=== PATIENT | female | born 2005 | race Caucasian/White ===

== ENCOUNTER → 2025-02-10 10:54 | Outpatient (BNVA) | payer SELFPAY | PROVIDERS: PCP Pediatrics | DX: Z02.89 Encounter for other administrative examinations (principal) ==

== ENCOUNTER 2025-05-15 09:23 | Outpatient (AMB) | payer BC, SELFPAY ==
--- NOTE | 2025-05-15 09:29 | MHC.PC.OV ---
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 Allergies Seasonal Allergies Allergy (Verified 05/15/25 09:35) Swollen Pet dander Allergy (Uncoded 05/15/25 09:35) Welts Tobacco use date assessed: 05/15/25 Dental Screening Dental Screen Date: 05/15/25 Did you have a dental visit in the last 12 months?: Yes Did you have a dental problem in the last 6 months where you did not have access to dental care?: No Was dental information given to patient?: Patient has dentist HPI HPI Comments History of Present Illness Details This is a 19-year-old female with a past medical history of IBS and environmental allergies presenting to establish care. She transferred from Pediatrics. Reports her last physical exam was in July 2024. 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 Shallot Packer-Dr. Mata. She has 1 partner. Declined screening for STIs. Anxiety and depression-Dr. Ibarra prescribes Zoloft 75 mg daily. She tapered from 200 mg daily. She is doing well. She endorses seasonal allergies and allergies do a animals. She specifically mentions cats, dogs and goes. A few times exposure has caused hives, itching, itchy watery eyes, throat itching and swelling around her eyes and face. She takes Benadryl as needed. She uses a nose spray daily. She sees gastroenterology for IBS. She may have gluten sensitivity. Has not had colonoscopy or endoscopy. ROS: Constitutional: No fevers, chills, chronic fatigue or night sweats. Eyes: No vision changes, blurry vision, double vision ENT: Denies hearing loss. See HPI. Respiratory: No shortness of breath, cough or sputum production. Denies wheezing. Denies asthma. Psychiatric: No SI/HI. Physical exam: Constitutional: Alert, in no distress. Eyes: Pupils are equal, round and reactive to light. Extraocular muscles intact. Ear, Nose and Throat: Canals clear. TMs normal. Normal nasal mucosa. Nasal turbinates 1+. No nasal discharge. No oral lesions. Neck: Supple, Full range of motion. No lymphadenopathy. No palpable thyroid masses. Respiratory: Clear to auscultation. Cardiovascular: S1 S2 regular. No murmurs. s. Musculoskeletal: No gross deformities. Normal range of motion. Extremities: Warm and well perfused. No clubbing, cyanosis or edema. [facility] Medical History (Updated 05/16/25 @ 11:06 by REID Palafox) Depression with anxiety Screening for cardiovascular condition Environmental and seasonal allergies Eczema Depression Anxiety IBS (irritable bowel syndrome) Surgical History (Updated 05/15/25 @ 09:46 by Rae Valdivia MA) History of appendectomy Family History (Updated 05/15/25 @ 09:42 by Rae Valdivia MA) Paternal Grandmother Hypertension Hyperlipemia FHx: mental illness Bipolar 1 disorder Father Hyperlipemia Substance abuse Alcoholism Mother Skin cancer FHx: mental illness Depression Maternal Grandmother FHx: mental illness Depression Anxiety Maternal Grandfather FHx: mental illness Social History (Updated 05/15/25 @ 09:42 by Rae Valdivia MA) Housing: House Alcohol intake: current Patient Tobacco Use Status: Never used Tobacco e-Cigarette/Vaping Use: Never Used Second Hand Smoke Exposure: No service: No Current occupational status: employed and student 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 1. Little interest or pleasure in doing things: not at all 2. Feeling down, depressed, or hopeless: not at all 3. Trouble falling or staying asleep, or sleeping too much: several days 4. Feeling tired or having little energy: several days 5. Poor appetite or overeating: not at all 6. Feeling bad about yourself - or that you are a failure or have let yourself or your family down: not at all 7. Trouble concentrating on things, such as reading the newspaper or watching television: not at all 8. Moving or speaking so slowly that other people could have noticed. Or the opposite - being so fidgety or restless that you have been moving around a lot more than usual: not at all 9. Thoughts that you would be better off or of hurting yourself in some way: not at all Total score: 2 Depression Screening Interpretation: Negative Depression Screening Done: Yes 68659 - PHQ-9 Billing: Yes Source: Developed by Drs. Tk Sánchez, Brisa Smith, Obi Reis and colleagues, with an educational vel from [employer]. Thrive Questionnaire Date Thrive assessed: 05/15/25 I am a: Patient What is your living situation today?: I have a steady place to live Within the past 12 months, did the food you bought not last and you didn't have the money to get more?: Never true Within the past 12 months, did you worry whether your food would run out before you got money to buy more?: Never true Do you have trouble paying for medicines?: No Do you have trouble getting transportation to medical appointments?: No Do you have trouble paying your heating and electricity bill?: No Do you have trouble taking care of your child, family member or friend?: No Do you have trouble with day-to-day activities such as bathing, preparing meals, shopping, managing finances, etc.?: No Are you currently unemployed and looking for a job?: No Are you interested in more education?: No Please select the resources that you would like help with: None Currently or been in a relationship where the following occur: No concerns reported THRIVE Score: 0 AUDIT C Alcohol Use Questionnaire (AUDIT-C) 1. How often do you have a drink containing alcohol?: 2-4 times a month 2. How many drinks containing alcohol do you have on a typical day when you are drinking?: 1 or 2 3. How often do you have six or more drinks on one occasion?: Never Total Score: 2 ROXANA-7 AMB Questionnaire ROXANA-7 Date ROXANA - 7 assessed: 05/15/25 Feeling nervous, anxious, or on edge: 1 = Several days Not being able to stop or control worryin = Several days Worrying too much about different things: 1 = Several days Trouble relaxin = Several days Being so restless that it is hard to sit still: 1 = Several days Becoming easily annoyed or irritable: 1 = Several days Feeling afraid as if something awful might happen: 1 = Several days Total ROXANA-7 score (0-4 normal; 5-9 mild; 10-14 moderate; 15-21 severe): 7 Source: Developed by Drs. Tk Sánchez, Brisa Smith, Obi Reis and colleagues, with an educational vel from [employer]. Physical exam (Primary Care) Vital Signs: Last Vital Signs Temp 97.8 F 05/15/25 09:42 Pulse 67 05/15/25 09:42 Resp 13 05/15/25 09:42 BP 112/70 05/15/25 09:42 Pulse Ox 98 05/15/25 09:42 Oxygen Delivery Method Room Air 05/15/25 09:42 BMI result Body Mass Index 23.1 Tobacco/Smoking Status: Tobacco use Status Tobacco use date assessed 05/15/25 05/15/25 09:45 Patient Tobacco Use Status Never used Tobacco 05/15/25 09:45 e-Cigarette/Vaping Use Never Used 05/15/25 09:45 PHQ-9: PHQ-9 Score PHQ-9: Total score 2 05/15/25 10:00 Depression Screening Interpretation: Negative Thrive Assessment: Date of Thrive Assessment Date Thrive assessed 05/15/25 05/15/25 09:31 Currently or been in a relationship where the following occur: No concerns reported Coding Level of Care Code New Pt Level 4 (04461) Complex EM visit Add On G2211 Diagnoses Environmental and seasonal allergies J30.89 Depression with anxiety F41.8 IBS (irritable bowel syndrome) K58.9 Additional Codes PHQ-9 - 35427 - PHQ-9 Billing: Yes ([id number]) Assessment & Plan Assessment & Plan (1) Environmental and seasonal allergies: Code(s): J30.89 - Other allergic rhinitis Category: Medical Plan: She is interested in immunotherapy. Referred to Allergy and immunology. Recommended Zyrtec 10 mg before exposure to animals. She can take this after exposure for allergy symptoms if she forgets. She can use Zyrtec 10 mg daily as needed for seasonal allergies. She is on a nasal spray. Given report of angioedema with exposure to goats, cats, dogs I prescribed an EpiPen as a precaution. Reviewed indicated use and administration. Advised to call 911 if she requires this medication. (2) Depression with anxiety: Code(s): F41.8 - Other specified anxiety disorders Category: Medical Plan: Followed by Psychiatry. Continue sertraline. (3) IBS (irritable bowel syndrome): Code(s): K58.9 - Irritable bowel syndrome, unspecified Category: Medical Plan: Followed by Gastroenterology. Plan She will schedule a physical exam and have fasting labs completed prior to this. Orders: Orders Lipid Panel 05/15/25 E78.5 - Hyperlipidemia, unspecified, J30.89 - Other allergic rhinitis, Z13.6 - Encounter for screening for cardiovascular disorders TSH reflex Free T4 05/15/25 J30.89 - Other allergic rhinitis, Z13.6 - Encounter for screening for cardiovascular disorders Complete Blood Count Auto Diff 05/15/25 J30.89 - Other allergic rhinitis, Z13.6 - Encounter for screening for cardiovascular disorders Comprehensive Met. Panel 05/15/25. - Other allergic rhinitis, Z13.6 - Encounter for screening for cardiovascular disorders Referrals Allergy & Immunology Referral . - Other allergic rhinitis Medications: New epinephrine (EpiPen) for 2 doses 0.3 mg (0.3 mL) IM Q10M PRN 1 ea 0RF anaphylaxis
[2025-05-15 09:42] VITALS: BP 112/70; PULSE 67; RESP 13; TEMP 36.6; O2SAT 98; BMI 23.1
--- OUTSIDE RECORDS SUMMARY | 2025-05-15 09:54 | XMS_ITS ---
Author Name [facility] Organization Unknown Encounters Encounter Type Encounter Reason Primary Diagnosis Location Date Ambulatory [facility] 06/24/2021 Care Team Organization Name Specialty Phone Email Start Date End Da te [facility] JAMARI GIBBS Primary Care 06/24/2021 05/16/2024
--- OUTSIDE RECORDS SUMMARY | 2025-05-15 09:55 | XMS_ITS | Patient Health Record ---
Author Organization [facility] Address [address] [place] [address] Care Team Providers Care Lead Instructor/Flight Attendant Name Role Phone Merna Mata Unavailable [phone] Allergies No Known Allergies Results Component Value Reference Range Notes Urinalysis Reviewed date:03/28/2025 12:10:38 PM Interpretation: Performing Lab: Notes/Report: PH 5.0 PROTEIN NEG GLUCOSE NEG BLOOD NEG [id number]-Xqo IGP, CtNg, Cultur e Under 30 Reviewed date:03/30/2025 04:43:23 PM Interpretation: Performing Lab:[facility] [place], [address], [address], [place], Phone - [phone], Director - [facility] Notes/Report: Clinical Information:VAG/CERV [id number] LMP / Prev Treat...[id number] Dates / Results....NONE No. of containers..01 ThinPrep Vial DIAGNOSIS: NEGATIVE FOR IN TRAEPITHELIAL LESION OR MALIGNANCY. Specimen adequacy: Satisfactory for evaluation. Endocervical and/or squamous metaplastic cells (endocervical component) are present. Clinician provided ICD10: Z01.419 Z72.51 Z11.3 Performed by: Shin hale, Customer Associate (ASCP) . . Note: The Pap smear is a screening test designed to aid in the detection of premalignant and malignant conditions of the uterine cervix. It is not a diagnostic procedure and should not be used as the sole means of detecting cervical cancer. Both false-positive and false-negative reports do occur. . Test Methodology: This liquid based ThinPrep(R) pap test was screened with the use of an image guided system. . The HPV DNA reflex criteria were not met with this specimen result therefore, no HPV testing was performed. . Chlamydia, Nuc. Acid Amp Negative Negative Gonococcus, Nuc. Acid Amp Negative Negative PDF Report Reviewed date:03/30/2025 04:42:20 PM Interpretation: Performing Lab:[facility], [address], [address], [place], Phone - [phone], Director - [facility] Notes/Report: Clinical Information:VAG/CERV [id number] LMP / Prev Treat...[id number] Dates / Results....NONE No. of containers..01 ThinPrep Vial Test, Urine Reviewed date:04/18/2025 01:08:47 PM Interpretation: Performing Lab: Notes/Report: Test, Urine NEGATIVE Reason For Referral No Information Medications Medication SIG (Take, Route, Fr equency, Duration) Notes Start Date End Date Status Sertraline HCl Activ e miSOPROStol 200 MCG 2 TABLETS Orally NIG HT BEFORE PROCEDURE; Duration: 1 days 03/28/2025 Acti ve Ativan 0.5 MG 1 tablet as needed O rally NIGHT BEFORE AND DAY OF PROCEDURE, THEN BIC, PRN; Duration: 1 days 03/28/2025 Active Social History Tobacco Use: Social History Observation Description Date Details (start date - stop date) Never Smoker NA - NA Sexual History Question Answer Notes Had sex in the past 12 months (vaginal, oral, or anal)? Yes with Men only Use protection? Yes How often? All of the time AUDIT-C (Standard) Question Answer Notes Did you have a drink containing alcohol in the p ast year? No Points 0 Interpretation Negative Tobacco Control (Standard) Question Answer Notes Tobacco use: Nonsmoker Vital Signs Temperature 98.2 degrees Fahrenheit 03/28/2025 Blood pressure diastolic 76 mm Hg 03/28/2025 Height 63 in 03/28/2025 Blood pressure systolic 118 mm Hg 03/28/2025 Weight 129 lbs 03/28/2025 BMI 22.85 kg/m2 03/28/2025 Encounters Encounter Location Date Provider Diagnosis Total [address] [facility] [address] [place] [address] 03/28/2025 Merna Mata Encounter for gynecological examination (general) (routine) without abnormal findings Z01.419 ; High risk heterosexual behavior Z72.51 ; Encounter for screening for infections with a predominantly sexual mode of transmission Z11.3 ; Encounter for routine checking of intrauterine contraceptive device Z30.431 and Other specified counseling Z71.89 [address] [place] [address] 04/18/2025 Merna Mata Encounter for remova l and reinsertion of intrauterine contraceptive device Z30.[address] [place] [address] 03/28/2025 Merna Mata Assessments Encounter Date Diagnosis (ICD Code) Assessment Notes Treatment Notes Treatment Clinical Notes Section Notes 03/28/2025 Encounter for gynecological examination (general) (routine) without abnormal findings (ICD-10 - Z01.419) PAP TEST WAS OBTAINED. 04/18/2025 Encounter for removal and reinsertion of intrauterine contraceptive device (ICD-10 - Z30.433) DISCUSSED BENEFITS AND RISKS OF IUD USE. PAT HAS NO CONTRAINDICATIONS TO IUD USE AND ACCEPTS RISKS OF INSERTION AND IUD USE. QUESITONS WERE ALL ANSWERED. 03/28/2025 High risk heterosexual behavior (ICD-10 - Z72.51) 03/28/2025 Encounter for screening for infections with a predominantly sexual mode of transmission (ICD-10 - Z11.3) GC & CHLAMYDIA TESTS WITH PAP SMEAR. 03/28/2025 Encounter for routine checking of intrauterine contraceptive device (ICD-10 - Z30.431) CRISTINA IUD NEEDS TO BE REPLACED THIS APR. RECOMMENDED WE SHIFT TO KYLEENA IUD. SUSPECT SHE HAS LONG PERIODS AND EPISODES OF BTB CRISTINA MAY NOT BE STRONG ENOUGH FOR HER. PAT AGREED. WILL REPLACE IUD WITH KYLEENA IUD IN APR 2025. RX FOR ATIVAN WAS GIVEN. PAT BECOMES EXTREMELY ANXIOUS PRIOR TO AND DURING PROCEDURES. 03/28/2025 Other specified counseling (ICD-10 - Z71.89) SAFE SEX AND CAREFUL PARTNER SELECTION WERE DISCUSSED. Plan Of Treatment Next Appt Details Provider Name:Merna shah, 05/19/2025 10:10:00 AM, [facility] [address], [place], [address], Provider Name:Merna shah, 04/04/2026 08:20:00 AM, [address], [address], [place], [address], Insurance Providers Payer Name Payer Address Payer Phone Subscriber Number Group Number Insured Name Patient Relationship to Insured Coverage Start Date Coverage End Date [employer] [place] [address] [place] [address] [phone] [id number] ISA WHITLOCK Self - patient is the insured Medical (General) History Medical History History ICD Code appendex 2016 Surgical History Surgery Date(Month/Year) APPENDECTOMUY 2016 Hospitalization History Reason Date(Month/Year) CAR ACCEDENT 02/08/2024
== END 2025-05-15 10:15 | disposition home or self-care (01) ==
LOC: HO.HMCFM 09:24
PROVIDERS: PCP Physician Assistant Medical; Visit Provider Physician Assistant Medical
DX: J30.89 Other allergic rhinitis (principal); F41.8 Other specified anxiety disorders; K58.9 Irritable bowel syndrome, unspecified

== ENCOUNTER → 2025-05-15 09:23 | Outpatient (BNVA) | payer BC, SELFPAY | PROVIDERS: PCP Physician Assistant Medical; Visit Provider Physician Assistant Medical | DX: J30.89 Other allergic rhinitis (principal); F41.8 Other specified anxiety disorders; K58.9 Irritable bowel syndrome, unspecified; Z79.899 Other long term (current) drug therapy; Z13.31 Encounter for screening for depression; Z13.39 Encounter for screening examination for other mental health and behavioral disorders | CPT/HCPCS: 96127 ==

== ENCOUNTER 2025-07-07 13:35 | Outpatient (AMB) | payer BC, SELFPAY ==
--- NOTE | 2025-07-07 13:37 | MHC.OFFWIV ---
Intake Vital Signs 07/07/25 13:42 Height 5 ft 3 in Weight 133 lb 4 oz BMI 23.6 BP 118/70 Blood Pressure Location Lt brachial Position Sitting Respiration 12 Pulse 69 Pulse Source Pulse Oximeter Temp 97.1 F Temp Source Oral Pulse Oximetry (%) 97 Oxygen Delivery Method Room Air Intake Visit Reasons: Anxiety Intake Note: Patient c/o anxiety and panic attacks after in the family. Patient Tobacco Use Status: Never used Tobacco Mash Filter Cloth Changer Required: No Allergies Seasonal Allergies Allergy (Verified 07/07/25 13:38) Swollen Pet dander Allergy (Uncoded 07/07/25 13:38) Welts Do you need a note to return to daycare/school/sports/work: No [facility] Medical History (Updated 05/16/25 @ 11:06 by REID Palafox) Depression with anxiety Screening for cardiovascular condition Environmental and seasonal allergies Eczema Depression Anxiety IBS (irritable bowel syndrome) Surgical History (Updated 05/15/25 @ 09:46 by Rae Valdivia MA) History of appendectomy Family History (Updated 05/15/25 @ 09:42 by Rae Valdivia MA) Paternal Grandmother Hypertension Hyperlipemia FHx: mental illness Bipolar 1 disorder Father Hyperlipemia Substance abuse Alcoholism Mother Skin cancer FHx: mental illness Depression Maternal Grandmother FHx: mental illness Depression Anxiety Maternal Grandfather FHx: mental illness Social History (Updated 05/15/25 @ 09:42 by Rae Valdivia MA) Housing: House Alcohol intake: current Patient Tobacco Use Status: Never used Tobacco e-Cigarette/Vaping Use: Never Used Second Hand Smoke Exposure: No service: No Current occupational status: employed and student 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
[2025-07-07 13:42] VITALS: BP 118/70; PULSE 69; RESP 12; TEMP 36.2; O2SAT 97; BMI 23.6
--- NOTE | 2025-07-07 14:04 | MHC.PC.OV ---
Vital Signs 07/07/25 13:42 Height 5 ft 3 in Weight 133 lb 4 oz BMI 23.6 BP 118/70 Blood Pressure Location Lt brachial Position Sitting Respiration 12 Pulse 69 Pulse Source Pulse Oximeter Temp 97.1 F Temp Source Oral Pulse Oximetry (%) 97 Oxygen Delivery Method Room Air Intake Visit Reasons: Anxiety Allergies Seasonal Allergies Allergy (Verified 07/07/25 14:07) Swollen Pet dander Allergy (Uncoded 07/07/25 13:38) Welts Medication List - Last Reconciled 07/07/25 by Freya Briceno, SUGARCANE RESEARCH TECHNICIAN- cetirizine (Zyrtec) 10 mg PO DAILY PRN epinephrine (EpiPen) 0.3 mg (0.3 mL) IM Q10M PRN levonorgestrel (Kyleena) intrauterine sertraline (Zoloft) 50 mg PO DAILY sertraline (Zoloft) 25 mg PO DAILY Tobacco use date assessed: 05/15/25 Dental Screening Dental Screen Date: 05/15/25 HPI HPI Comments History of Present Illness Details 19-year-old female with a past medical history of IBS, MDD, ROXANA environmental allergies 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 Here for acute anxiety and panic. Grandfather passed way increased stress Services are next week 4 panic attacks in the last 2 weeks active w/ counselor weekly Anxiety and depression-Dr. Ibarra prescribes Zoloft 75 mg daily who does not RX prn meds uses exercise to cope Sx of panic: chest tightness, hard to breath, hyperventiliation, palps, crying. Denies SI/HI. FLu shot 06/2025 Exam Awake alert NAD RRR LS CTAB Mood and affect appropriate During today?s visit, we discussed the recent increase in panic attacks and the management options available. I provided information on hydroxyzine and metoprolol as potential PRN choices for acute anxiety episodes. I clarified the sedative effects and indications of each medication, including dosing strategies. We also reviewed the safety of using hydroxyzine with her current sertraline prescription. The patient chose hydroxyzine due to its flexibility in dosing and ability to adjust to situational needs. We discussed taking an initial trial dose at home to assess her reaction. We also talked about practicing self-awareness and measuring the effects of the medication. Future follow-ups with her primary psychiatrist and psychologist were encouraged, and the potential use of a patient portal for communication and addressing ongoing concerns was highlighted. I also recommended she attend her upcoming appointments and provided anticipatory guidance to monitor her response to the medication. Patient was given time to ask questions. All questions were answered to their satisfaction. A&P 1. Generalized Anxiety Disorder w/ Panic - Maintain sertraline therapy. - Initiate hydroxyzine PRN for acute anxiety 12.5-50mg TID PRN - Continue therapy and exercise. - Monitor response, ensure proactive use before stressors. - No drug interaction concerns with current regimen. - RTO as scheduled with PCP, sooner PRN Patient Instructions: - Continue taking sertraline 75 mg daily as prescribed for anxiety. - Take hydroxyzine up to three times per day as needed to manage panic attacks. Start with a half tablet and gradually increase only if needed. - Exercise regularly and keep attending therapy sessions. - Take hydroxyzine at home first to see how it affects you. - Use hydroxyzine 30 minutes before high-stress situations such as services. Patient was informed and verbally consented to the use of an ambient scribe for clinic note documentation during this visit. Total time spent caring for the patient today was 30 minutes. This includes time spent before the visit reviewing the chart, time spent during the visit, and time spent after the visit on documentation, reviewing laboratory results, diagnostic imaging, medications, performing a medically necessary evaluation, counseling on diagnoses, care coordination, ordering appropriate tests, ordering appropriate medications, review of tests performed by other providers, reporting test results with the patient, communication with other healthcare providers. [facility] Medical History (Updated 05/16/25 @ 11:06 by REID Palafox) Anxiety Depression Depression with anxiety Eczema Environmental and seasonal allergies IBS (irritable bowel syndrome) Screening for cardiovascular condition Surgical History (Updated 05/15/25 @ 09:46 by Rae Valdivia MA) History of appendectomy Family History (Updated 05/15/25 @ 09:42 by Rae Valdivia MA) Paternal Grandmother Hypertension Hyperlipemia FHx: mental illness Bipolar 1 disorder Father Hyperlipemia Substance abuse Alcoholism Mother Skin cancer FHx: mental illness Depression Maternal Grandmother FHx: mental illness Depression Anxiety Maternal Grandfather FHx: mental illness Social History (Updated 05/15/25 @ 09:42 by JORDAN Frausto Housing: House Alcohol intake: current Patient Tobacco Use Status: Never used Tobacco e-Cigarette/Vaping Use: Never Used Second Hand Smoke Exposure: No service: No Current occupational status: employed and student Current occupation: Home H[employer] - [employer] Current occupational exposures/hazards: Yes Cognitive needs: No Hearing needs: No Vision needs: No Questionnaire Thrive Questionnaire Date Thrive assessed: 05/15/25 I am a: Patient What is your living situation today?: I have a steady place to live Within the past 12 months, did the food you bought not last and you didn't have the money to get more?: Never true Within the past 12 months, did you worry whether your food would run out before you got money to buy more?: Never true Do you have trouble paying for medicines?: No Do you have trouble getting transportation to medical appointments?: No Do you have trouble paying your heating and electricity bill?: No Do you have trouble taking care of your child, family member or friend?: No Do you have trouble with day-to-day activities such as bathing, preparing meals, shopping, managing finances, etc.?: No Are you currently unemployed and looking for a job?: No Are you interested in more education?: No Please select the resources that you would like help with: None Currently or been in a relationship where the following occur: No concerns reported THRIVE Score: 0 ROXANA-7 AMB Questionnaire ROXANA-7 Date ROXANA - 7 assessed: 05/15/25 Source: Developed by Drs. Tk Sánchez, Brisa Smith, Obi Reis and colleagues, with an educational vel from [employer]. Physical exam (Primary Care) Vital Signs: Last Vital Signs Temp 97.1 F 07/07/25 13:42 Pulse 69 07/07/25 13:42 Resp 12 07/07/25 13:42 BP 118/70 07/07/25 13:42 Pulse Ox 97 07/07/25 13:42 Oxygen Delivery Method Room Air 07/07/25 13:42 BMI result Body Mass Index 23.6 Tobacco/Smoking Status: Tobacco use Status Tobacco use date assessed 05/15/25 05/15/25 09:45 Patient Tobacco Use Status Never used Tobacco 05/15/25 09:45 e-Cigarette/Vaping Use Never Used 05/15/25 09:45 Thrive Assessment: Date of Thrive Assessment Date Thrive assessed 05/15/25 05/15/25 09:31 Currently or been in a relationship where the following occur: No concerns reported Coding Level of Care Code Est Pt Level 4 (70759) Complex EM visit Add On G2211 Diagnoses Depression with anxiety F41.8 Assessment & Plan Assessment & Plan (1) Depression with anxiety: Code(s): F41.8 - Other specified anxiety disorders Category: Medical Plan . Medications: New hydroxyzine HCl 25 mg PO TID PRN 90 tabs 0RF itching Patient Instructions: Trial Hydrozyxine 12.5-50mg three times per day as needed for acute anxiety; titrate to effect.
== END 2025-07-07 14:16 | disposition home or self-care (01) ==
LOC: HO.HMCFM 13:36
PROVIDERS: PCP Physician Assistant Medical; Visit Provider Nurse Practitioner Family
DX: F41.8 Other specified anxiety disorders (principal)

== ENCOUNTER 2025-08-11 07:42 | Outpatient (REF) | payer BC, SELFPAY ==
--- OUTSIDE RECORDS SUMMARY | 2025-05-19 06:10 | XMS_ITS ---
Author Organization [facility] [employer] [facility] Address [address] [place] [address] Care Team Providers Care Bushler Name Role Phone Merna Mata Unavailable [phone] REASON FOR VISIT ULTRA-CK IUD Encounters Encounter Location Date Provider Diagnosis [facility] [employer] [address] [address] 05/19/2025 Merna Mata Plan Of Treatment Next Appt Details Provider Name:Merna gilmoremitchell, 04/04/2026 08:20:00 AM, [address] [place] [address], [facility] [address], [place], [address], Progress Notes * ISA WHITLOCKDOB: (19 yo F)Acc No.[id number]:05/19/2025 PROGRESS NOTES Patient: Marvin ISA FIGUEREDO Appointment Provider: Mitchell Mata M.D. :2005 A ge:19 Y S ex:Female Date:05/19/2025 Address:[address] [place] [address] Subjective: * Chief Complaints: * 1 . ULTRA-CK IUD. * Medical History: Objective: * Vitals: Assessment: Plan: * Treatment: * Images: Billing Information: * Visit Code: * Procedure Codes: * Electronic signature of Winston Mata MD on 08/11/2025 at 07:44 AM EST Sign off status: Pending * Appointment Provider: Mitchell Mata M.D. Date: 0 05/19/2025 Generated for Mavis pisano/Nellie/Alex on: 1 10/11/2024 07:44 AM EST
--- OUTSIDE RECORDS SUMMARY | 2025-08-11 07:45 | XMS_ITS | Clinical Summary ---
Author Organization [facility] Address [address] [place], [place] [id number] Care Team Providers Care Lead Laying And Gluing Machine Operator Name Role Phone Estephania Sims MD Primary Care Provider Source Comments Please note that some or all of the patient's information could have additional privacy protections. State laws allow health care providers to render certain types of treatment to minors without parental consent. Please do not assume that this information can be shared solely by obtaining just the consent of the patient's parent/guardian. Please determine if all or part of the patient's care was rendered without parent/guardian involvement. And, if so, obtain the minor's consent prior to disclosure.[facility]'s Allergies Active Allergy Reactions Criticality Noted Date Comments Other (Environmental) 02/05/2018 Seasonal 02/05/2018 Medications loratadine (CLARITIN) 10 mg tablet Take by mouth daily Active fluticasone (FLONASE) 50 mcg/actuation nasal spray 2 sprays by Nasal route daily Active adapalene (DIFFERIN) 0.1 % gel Apply topically Active desogestreL-eth inyl estradioL (APRI) 0.15-0.03 mg per tablet Take by mouth 0 Active APRI 0.15-0.03 mg per tablet Take 1 tablet by mouth daily 1 Active Active Problems No known active problems Family History Medical History Relation Name Comments Thyroid disease 2nd cousin No Known Problems Father No Known Problems Mother Celiac disease Paternal Cousin Hypertension Paternal Grandmother Relation Name Status Comments 2nd cousin Father Mother Paternal Cousin Paternal Grandmother Social History Tobacco Use Types Packs/Day Years Used Date Smoking Tobacco: Never Smokeless Tobacco: Never Other Needs Answer Date Recorded Anything else about your child you'd like help w ith? Not on file 06/12/2023 Share good news about positive changes: Not on f ile 06/12/2023 Comments No Sex and Gender Information Value Date Recorded Sex Assigned at Not on file Legal Sex Female 8:42 AM EDT Gender Identity Not on file Sexual Orientation Not on file Last Filed Vital Signs Vital Sign Reading Time Taken Comments Blood Pressure 129/79 08/16/2021 12:17 PM EST Pulse 69 08/16/2021 12:17 PM EST Temperature - - Respiratory Rate - - Oxygen Saturation - - Inhaled Oxygen Concentration - - Weight 60 kg (132 lb 4.4 oz) 08/16/2021 12:17 PM EST Height 160.5 cm (5' 3.19 ) 08/16/2021 12:[address] Body Mass Index 23.29 08/16/2021 12:17 PM EST Plan of Treatment Health Maintenance Due Date Last Done Comments DTaP/TDAP/TD VACCINES (1 - Tdap) 2010 ADOLESCENT HIV SCREENING 2016 COVID-19 Vaccine ( - 2023-2 5 season) 2025 INFLUENZA (#1) 2025 NIRSEVIMAB VACCINES UNDER 8 MONTHS Aged Out No longer eligible based on patient's age to complete this topic Insurance [facility] [place] [id number] [employer] Care Teams Lead Laying And Gluing Machine Operator Relationship Specialty Start Date End Date Estephania Sims MD PCP - General 02/05/18
--- OUTSIDE RECORDS SUMMARY | 2025-08-11 07:45 | XMS_ITS | Encounter Summary ---
Author Organization [facility] Address [address] [place] [address] Care Team Providers Care Analysis Engineer Name Role Phone Estephania Sims MD Primary Care Provider Reason for Visit * Reason Comments Medication Refill Encounter Details Date Type Department Care Team (Late st Contact Info) Description 07/16/2021 Refill [facility], [address] [address] Aubrie Rodriguez MD [address] [place] [id number] Lower abdominal pain Social History Tobacco Use Types Packs/Day Years Used Date Smoking Tobacco: Never Smokeless Tobacco: Never Comments No Sex and Gender Information Value Date Recorded Sex Assigned at Not on file Legal Sex Female 8:42 AM EDT Gender Identity Not on file Sexual Orientation Not on file documented as of this encounter Miscellaneous Notes * Telephone Encounter - Ibeth Curtis RN - 07/16/2021 11:13 AM EDT Last visit: 06/24/21 Next visit: 08/16/21 Weight: 57.6 kg Allergies: reviewed Current dose: Bentyl 10 mg po three times a day for abdominal pain documented in this encounter Plan of Treatment Not on file documented as of this encounter Visit Diagnoses Diagnosis Lower abdominal pain Abdominal pain, other specified site documented in this encounter Care Teams Analysis Engineer Relationship Specialty Start Date End Date Estephania Sims MD PCP - General 02/05/18 documented as of this encounter
--- OUTSIDE RECORDS SUMMARY | 2025-08-11 07:45 | XMS_ITS | Data Portability ---
Author Organization [facility], [address] Address [address] [place] [address] Assessment No assessment recorded. Plan of Treatment Reminders Order Date Submit Date Provider Last Modified By Organization Details Last Modified Time Details Appointments None recorded. Lab None recorded. Referral None recorded. Procedures None recorded. Surgeries None recorded. Imaging None recorded. Medication Orders Diflucan 150 mg tablet 2023 024 [facility][id number], [address] [place], [address], 17:36:43 Patient TargetsNo targets recorded. Patient Instructions Encounter Date Encounter Id Patient Instructions Last Modified By Organization Details Last Modified Time 04/14/2024 [id number] Based on your history and complaint, you are being diagnosed with vaginal yeast infection. The Most Common Symptoms associated with this condition is: 1. Itching or irritation of the vulva and around the vaginal opening 2. Irritation during urination 3. External Redness and Swelling 4. White Vaginal Discharge The fungus that causes yeast infections (named Lisa) lives in the gastrointestinal tract and sometimes the vagina. Normally, Lisa causes no symptoms. However, when there are changes in the environment of the gastrointestinal tract and vagina (which can be caused by medicines, injury, or stress to the immune system), Lisa can overgrow and cause the symptoms described above. Risk Factors Include: 1. Antibiotics 2. Oral Contraceptive Pills 3. Decreased Immune System 4. Diabetes 5. Sexual [place] 6. As with initial yeast infections, it is important to correctly diagnose recurrent yeast infections. A woman who has frequent signs and symptoms of vulvar or vaginal irritation or itching could have a different issue (eg, other vaginal infections, allergic reaction or sensitivity, eczema). I would suggest that you follow up if your symptoms do not improve with the treatment or if you develop any of the following symptoms: 1. Colored Vaginal Discharge 2. Strong Vaginal Odor 3. Bleeding from vagina or blood in the urine 4. Painful urination 5. Suprapubic pain 6. Fever 7. Find out a sexual partner currently has a sexually transmitted disease. Thank you for using [facility], please feel free to contact our office if you have any questions or concerns. [email or web address] Not available 04/14/2024 17:36:40 Reason for Referral None Reported. Procedures Surgical History Date Name Laterality Status Provider Name and Address Organization Details Recorded Time extraction of wisdom tooth completed ADIS MATHEWS - [facility] 04/14/2024 17:21:46 Imaging Results None recorded. Procedure Notes None recorded. Medical Equipment None Reported. Allergies No known drug allergies Medications Name Sig Start Date Stop Date Status Note LastModified by Organization Details LastModified Time sertraline 100 mg tablet TAKE 2 TABLET (200 MG) BY MOUTH AT BEDTIME active Not Available Not Available No t Available Diflucan 150 mg tablet Take 1 tab now, then 1 tab in 3 days if symptoms persis 2023 active Not Available Not Available Not Avai lable triamcinolo ne acetonide 0.1 % topical cream FAMILY TO MIX 80 GRAMS OF TRIAMCINO LONE WITH 1 POUND OF CERAVE & USE DAILY 04/14 completed Not Available Not Available Not Available bupropion HCl SR 100 mg tablet,12 hr sustained-r elease TAKE 1 TABLET BY MOUTH DAILY IN THE MORNING 04/14 completed Not Available Not Available Not Available amoxicillin 250 mg/5 mL oral suspension TAKE 10MLS BY MOUTH EVERY 8 HOURS UNTIL GONE 04/14 completed Not Available Not Available Not Available methylpredn isolone 4 mg tablets in a dose pack TAKE 6 TABLETS ON DAY 1 DIRECTED ON PACKAGE AND DECREASE BY 1 TAB EACH DAY FOR A TOTAL OF 6 DAYS 04/14 completed Not Available Not Available Not Available ondansetron 4 mg disintegrat ing tablet DISSOLVE 1 TABLET ON TONGUE EVERY 8 HOURS NEEDED FOR NAUSEA 04/14 completed Not Available Not Available Not Available mometasone 0.1 % topical cream APPLY TO AFFECTED AREA TOPICALLY EVERY DAY 04/14 completed Not Available Not Available Not Available oxycodone 5 mg tablet TAKE 1 TABLET BY MOUTH EVERY 4 HOURS NEEDED FOR PAIN 04/14 completed Not Available Not Available Not Available methylpheni date LA 10 mg biphasic 50-50 capsule,ext ended release TAKE 1 CAPSULE BY MOUTH EVERY DAY IN THE MORNING 04/14 completed Not Available Not Available Not Available Vitals Date Recorded Body height Body mass index (BMI) Body mass index (BMI) [Percentile] Per age and sex Body weight Oxygen saturation Oxygen saturation in Arterial blood by Pulse oximetry Heart rate Respiratory rate Body temperature Systolic And Diastolic Provider Name and Address Organization Details Last Updated DateTime 4 160.02 cm 24.6 kg/m2 75 % 08551.3 4 g 98 % 98 % 75 /min 18 /min 98 [degF] 133/84 mm[Hg] ADIS GRAY PA - [facility] 4 17:23:50 Social History None recorded. Functional Status Question Answer Note LastModified by Organizat ion Details LastModified Time Do you use any illicit or recreational drugs? No Information not available 04/14/2024 Do you or have you ever used any other forms of tobacco or nicotine? No Information not available 04/14/2024 What is your level of alcohol consumption? None Information not available 04/14/2024 Mental Status None recorded. Family History Nothing Reported. Medical History No medical history recorded. Gynecological History Statement/Question Response Date of LMP 03/30/2024 Is there any chance of ? No LMP Approximate Obstetrics History GPAL:G 0 P 0 0 0 0 Immunizations Vaccine Type Date Status Note Provider Nam e and Address Organization Details Recorded Time meningococcal B, recombinant 2 completed ADIS MINEO null, PA - [facility] 04/14/2024 17:22:11 meningococcal B, recombinant 0 completed ADIS QUINTANILLAO null, PA - [facility] 04/14/2024 17:22:11 HPV9 3 completed ADIS MINEO null, PA - [facility] 04/14/2024 17:22:11 Influenza, MDCK, quadrivalent, PF 3 completed ADIS GRAY null, PA - [facility] 04/14/2024 17:22:11 COVID-19, mRNA, LNP-S, PF, 30 mcg/0.3 mL dose 1 completed ADIS MINEO null, PA - [facility] 04/14/2024 17:22:11 COVID-19, mRNA, LNP-S, PF, 30 mcg/0.3 mL dose 1 completed ADIS MINEO null, PA - [facility] 04/14/2024 17:22:11 COVID-19, mRNA, LNP-S, PF, 30 mcg/0.3 mL dose, tamara-sucrose 2 completed ADIS MINEO null, PA - [facility] 04/14/2024 17:22:11 Hep A, ped/adol, 2 dose 6 completed ADIS MINEO null, PA - [facility] 04/14/2024 17:22:11 meningococcal MCV4P 0 completed ADIS MINEO null, PA - [facility] 04/14/2024 17:22:11 Past Encounters Encounter ID Performer Location Encounter Start Date Encounter Closed Date Diagnosis/Indication Diagnosis SNOMED-CT Code Diagnosis ICD10 Code Diagnosis IMO Codes Diagnosis Note [id number] [address] [place] [phone] 06/30/2021 08:51:09 06/30/2021 11:39:[id number] [place] [phone] 06/15/2020 14:30:09 06/15/2020 14:34:44 [id number] [address] [place] [id number] 10/18/2016 10:13:20 10/18/2016 11:32:12 [id number] [address] [place] [id number] 03/20/2022 08:54:45 03/20/2022 10:23:24 [id number] [facility] [address] [place] [address] 04/14/2024 16:39:27 04/14/2024 17:38:57 Candidiasis of vagina 15342414 B37.31 Health Concerns Section Related Observation LastModified by Organization Detai ls LastModified Time None Recorded Concern Status LastModified by Organization Details LastModified Time None Recorded Advance Directives Directive None Recorded Payers Insurance Date Sequence Insurance Name Policy Number Policy Bassett Covered Member ID Bassett Member ID Guarantor Name 04/14/2024 1 [facility]: [facility] ([facility] [place]) [id number] Raiza Portia [id number] Radha Portia Notes Date Note Type Note Provider Name and Address Organization Details Recorded Time 04/14/2024 text/html 18 y.o healthy female pt presents with vaginal itching and white thick discharge x 2 days. Pt recently had ABX for dental visit. Pt denies fever, dysuria, urgency or pelvic pain. REID MEZA [address] [place], [address], [place] - [facility] 04/14/2024 17:38:22 OBGyn Episode No OBEpisode recorded.
--- OUTSIDE RECORDS SUMMARY | 2025-08-11 07:45 | XMS_ITS | Patient Health Record ---
Author Organization [facility] Address [address] [place] [address] Care Team Providers Care Trip Rider Name Role Phone Merna Mata Unavailable [phone] Allergies No Known Allergies Results Component Value Reference Range Notes Urinalysis Reviewed date:03/28/2025 12:10:38 PM Interpretation: Performing Lab: Notes/Report: PH 5.0 PROTEIN NEG GLUCOSE NEG BLOOD NEG [id number] IGP, CtNg, Cultur e Under 30 Reviewed date:03/30/2025 04:43:23 PM Interpretation: Performing Lab:[facility] [place], Jack Sher[address], [address], [place], Phone - [phone], Director - [facility] Notes/Report: Clinical Information:VAG/CERV [id number] LMP / Prev Treat...[id number] Dates / Results....NONE No. of containers..01 ThinPrep Vial DIAGNOSIS: NEGATIVE FOR IN TRAEPITHELIAL LESION OR MALIGNANCY. Specimen adequacy: Satisfactory for evaluation. Endocervical and/or squamous metaplastic cells (endocervical component) are present. Clinician provided ICD10: Z01.419 Z72.51 Z11.3 Performed by: Shin hale, Recoating Machine Operator (ASCP) . . Note: The Pap smear [...] Report Reviewed date:03/30/2025 04:42:20 PM Interpretation: Performing Lab:[facility] [place], Jack [address], [address], [place], Phone - [phone], Director - [facility] Notes/Report: Clinical Information:VAG/CERV [id number] LMP / Prev Treat...[id number] Dates / Results....NONE No. of containers..01 ThinPrep Vial Test, Urine Reviewed date:04/18/2025 01:08:47 PM Interpretation: Performing Lab: Notes/Report: Test, Urine NEGATIVE Reason For Referral No Information Medications Medication SIG (Take, Route, Frequency, Duration) Notes Start Date End Date Status Sertraline HCl Activ e Kyleena 19.5 MG as directed Intrauterine Inserted 04/18/25 Active Sertraline HCl 25 MG Oral; Duration: 90 Days Active EPINEPHrine 0.3 MG/0.3ML Injection; Duration: 2 Days Active Social History Tobacco Use: Social History [...] (Standard) Question Answer Notes Tobacco use: Nonsmoker Problems Problem Type SNOMED Code ICD Code Onset Dates Problem Status W/U Status Risk Notes Problem Acquired absence (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) 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 Vital Signs Temperature 98.1 degrees Fahrenheit 05/19/2025 Blood pressure diastolic 70 mm Hg 05/19/2025 Height 63 in 05/19/2025 Blood pressure systolic 108 mm Hg 05/19/2025 Weight 129 lbs 05/19/2025 BMI 22.85 kg/m2 05/19/2025 Encounters Encounter Location Date Provider Diagnosis [address] [place] [address] 05/19/2025 Merna Mata Total [facility] [address] [address] 03/28/2025 Merna Mata Encounter for gynecological examination (general) (routine) without abnormal findings Z01.419 ; High risk heterosexual behavior Z72.51 ; Encounter for screening for infections with a predominantly sexual mode of transmission Z11.3 ; Encounter for routine checking of intrauterine contraceptive device Z30.431 and Other specified counseling Z71.[address] [address] 04/18/2025 Merna Mata Encounter for remova l and reinsertion of intrauterine contraceptive device Z30.[address] [address] 05/19/2025 Merna Mata Encounter for routin e checking of intrauterine contraceptive device Z30.[address] [address] 03/28/2025 Merna Mata Assessments Encounter Date Diagnosis [...] AND IUD USE. QUESITONS WERE ALL ANSWERED. 05/19/2025 Encounter for routine checking of intrauterine contraceptive device (ICD-10 - Z30.431) REASSURED PAT THAT IUD STRINGS ARE IN PLACE. PELVIC ULTRASOUND WAS DONE AND IT CONFIRMED THAT IUD IS IN NORMAL POSITION. INFORMED PAT. IBUPROFEN FOR CRAMPS, 600 MG Q 8 HOURS NEEDED. IF PAINS AND BTB CONITNUE FOR ANOTHER 1 TO 2 MONTHS, COME BACK IN. 03/28/2025 High risk heterosexual behavior (ICD-10 - [...] Of Treatment Next Appt Details Provider Name:Merna Galloway alyssa, 04/04/2026 08:20:00 AM, [address] [facility], [address], [place], [address], Insurance Providers Payer Name Payer Address Payer Phone Subscriber Number Group Number Insured Name Patient Relationship to Insured Coverage Start Date Coverage End Date [employer] [place] [address] [place] [address] [id number] ISA WHITLOCK Self - patient is the insured Medical (General) History Medical History History ICD Code Acquired absence of other organs Z90.89 Surgical History Surgery Date(Month/Year) APPENDECTOMUY 2015 Hospitalization History Reason Date(Month/Year) CAR ACCEDENT 02/08/2024
[2025-08-11 11:10] LABS: MANUAL DIFF FLAG NO
[2025-08-11 11:52] LABS: Hematocrit 40.8 % (37.0-47.0); Hemoglobin 13.7 g/dl (12.0-16.0); Imm Gran Abs Auto 0.00 X10*3/uL (0.00-0.03); Imm Gran Pct Auto 0.0 % (0.0-0.4); Lymphocytes Absolute Auto 1.7 X10*3/uL (1.2-4.9); Mean Corpuscular HGB Conc 33.6 g/dl (31.0-35.0); Mean Corpuscular Hemoglobin 30.6 pg (27.0-33.0); Mean Corpuscular Volume 91.1 fL (80.0-98.0); NRBC Abs Auto 0.000 X10*3/uL (0.0-0.012); NRBC Pct Auto 0.0 /100WBC (0.0-0.2); Platelet Count 207 X10*3/uL (160-400); Red Blood Count 4.48 X10*6/uL (4.20-5.50); White Blood Count 4.5 X10*3/uL (4.8-10.8)
[2025-08-11 12:16] LABS: Alanine Aminotransferase 20 U/L (0-31); Albumin Level 4.6 g/dL (3.5-5.0); Alkaline Phosphatase 34 U/L (39-117); Anion Gap 10 (12-20); Aspartate Amino Transferase 25 U/L (5-31); Blood Urea Nitrogen 18 mg/dL (9-16); Calcium 9.1 mg/dL (8.4-10.2); Carbon Dioxide 27 mmol/L (22-29); Chloride 107 mmol/L (96-108); Cholesterol 174 mg/dL (<200); Estimated Glomerular Filt Rate > 60; HDL Cholesterol 56 mg/dL (>40); Potassium 4.1 mmol/L (3.3-5.1); Sodium 140 mmol/L (135-145); Total Protein 7.2 g/dL (6.5-8.0); Triglycerides 66 mg/dL (<150)
== END 2025-08-11 07:43 | disposition home or self-care (01) ==
LOC: HO.WFDLDS 07:42
PROVIDERS: Visit Provider Physician Assistant Medical
DX: Z13.6 Encounter for screening for cardiovascular disorders (principal); J30.89 Other allergic rhinitis; E78.5 Hyperlipidemia, unspecified
CPT/HCPCS: 36415; 80053; 80061; 84443; 85025

== ENCOUNTER 2025-08-14 14:30 | Outpatient (AMB) | payer BC, SELFPAY ==
--- NOTE | 2025-08-14 14:38 | A.OFFPC_ITS ---
Vital Signs 08/14/25 14:41 Height 5 ft 3 in Weight 136 lb 2 oz BMI 24.1 BP 112/67 Blood Pressure Location Lt brachial Position Sitting Respiration 12 Pulse 53 Pulse Source Pulse Oximeter Temp 97.2 F Temp Source Temporal Artery Scan Pulse Oximetry (%) 99 Oxygen Delivery Method Room Air Intake Visit Reasons: annual physical exam Intake Note: CPE Fire Equipment Inspector Required: No Allergies Seasonal Allergies Allergy (Verified 08/14/25 14:39) Swollen Pet dander Allergy (Uncoded 08/14/25 14:39) Welts Medication List - Last Reconciled 08/14/25 by REID Palafox cetirizine (Zyrtec) 10 mg PO DAILY PRN epinephrine (EpiPen) 0.3 mg (0.3 mL) IM Q10M PRN levonorgestrel (Kyleena) intrauterine lorazepam 0.5 mg PO DAILY PRN sertraline (Zoloft) 50 mg PO DAILY sertraline (Zoloft) 25 mg PO DAILY Tobacco use date assessed: 08/14/25 Dental Screening Dental Screen Date: 08/14/25 Did you have a dental visit in the last 12 months?: Yes Did you have a dental problem in the last 6 months where you did not have access to dental care?: No Was dental information given to patient?: Patient has dentist HPI HPI Comments History of Present Illness Details This is a 19-year-old female with a past medical history of IBS and environmental allergies presenting for a physical exam. 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 Mata. She has 1 partner. Declined screening for STIs. Anxiety and depression-Dr. Ibarra prescribes Zoloft. She recently increase to 100 mg daily due to increased anxiety and panic attacks following the passing of her grandfather. She was prescribed hydroxyzine, but it made her very drowsy and did not help with anxiety. She has used lorazepam for situational anxiety in the past. She saw the gas maker helper, and she started allergy shots. She sees gastroenterology for IBS. She may have gluten sensitivity. Received flu vaccine at [facility]. She is taking spironolactone for acne from telehealth Dermatology. Potassium level is normal. We discussed her labs which showed mildly decreased white blood cell count and mildly decreased alkaline phosphatase level. ROS: Constitutional: No unexplained weight loss, fever, chills, fatigue or night sweats. Eyes: No vision changes, blurry vision, double vision, eye pain, eye redness, eye discharge. ENT: No hearing loss, sneezing, congestion, runny nose or sore throat. Respiratory: No shortness of breath, cough or sputum production. Cardiovascular: No chest pain, chest pressure or chest discomfort. No palpitations or pedal edema. Gastrointestinal: No anorexia, nausea, vomiting or diarrhea. No abdominal pain or blood in stool. Genitourinary: No dysuria, hematuria, urinary frequency. Neurologic: No headache, dizziness, syncope, unilateral weakness, ataxia, numbness or tingling in the extremities. Musculoskeletal: No muscle pain, back pain, joint pain or swelling. Hematologic/Lymphatics: No bleeding or bruising. No painful lymph nodes. Skin: +acne Endocrine: No cold or heat intolerance. No polyuria or polydipsia. Psychiatric: See HPI Physical exam: Constitutional: Alert, in no distress. Head: Normocephalic. Eyes: Pupils are equal, round and reactive to light. Extraocular muscles intact. Ear, Nose and Throat: Canals clear. TMs normal. Normal nasal mucosa. No nasal discharge. No oral lesions. Neck: Supple, Full range of motion. No lymphadenopathy. No palpable thyroid masses. Respiratory: Clear to auscultation. Cardiovascular: S1 S2 regular. No murmurs. Gastrointestinal: Abdomen soft, non-tender, non-distended. Normal bowel sounds. No palpable masses. Neurologic: No focal neurological deficits. Symmetric patellar reflexes. Moves all extremities spontaneously. Sensation intact bilaterally. Skin: No rashes or lesions. Musculoskeletal: No gross deformities. Normal range of motion. Extremities: Warm and well perfused. No clubbing, cyanosis or edema. Intact peripheral pulses bilaterally Psychiatric: Normal mood and affect [facility] Medical History (Updated 08/14/25 @ 15:12 by REID Palafox) Routine physical examination Decreased white blood cell count Low serum alkaline phosphatase Depression with anxiety Screening for cardiovascular condition Environmental and seasonal allergies Eczema Depression Anxiety IBS (irritable bowel syndrome) Surgical History (Updated 05/15/25 @ 09:46 by Rae Valdivia MA) History of appendectomy Family History (Updated 05/15/25 @ 09:42 by Rae Valdivia MA) Paternal Grandmother Hypertension Hyperlipemia FHx: mental illness Bipolar 1 disorder Father Hyperlipemia Substance abuse Alcoholism Mother Skin cancer FHx: mental illness Depression Maternal Grandmother FHx: mental illness Depression Anxiety Maternal Grandfather FHx: mental illness Social History (Updated 05/15/25 @ 09:42 by Rae Valdivia MA) Housing: House Alcohol intake: current Patient Tobacco Use Status: Never used Tobacco e-Cigarette/Vaping Use: Never Used Second Hand Smoke Exposure: No service: No Current occupational status: employed and student Current occupation: Home [employer] - [employer] Current occupational exposures/hazards: Yes Cognitive needs: No Hearing needs: No Vision needs: No Questionnaire PHQ-9 Over the last 2 weeks, how often have you been bothered by any of the following problems? 1. Little interest or pleasure in doing things: not at all 2. Feeling down, depressed, or hopeless: not at all 3. Trouble falling or staying asleep, or sleeping too much: not at all 4. Feeling tired or having little energy: not at all 5. Poor appetite or overeating: not at all 6. Feeling bad about yourself - or that you are a failure or have let yourself or your family down: not at all 7. Trouble concentrating on things, such as reading the newspaper or watching television: not at all 8. Moving or speaking so slowly that other people could have noticed. Or the opposite - being so fidgety or restless that you have been moving around a lot more than usual: not at all 9. Thoughts that you would be better off or of hurting yourself in some way: not at all Total score: 0 Depression Screening Interpretation: Negative Depression Screening Done: Yes 56762 - PHQ-9 Billing: Yes Source: Developed by Drs. Tk Sánchez, Brisa Smith, Obi Reis and colleagues, with an educational vel from [employer]. Thrive Questionnaire Date Thrive assessed: 08/14/25 I am a: Patient What is your living situation today?: I have a steady place to live Within the past 12 months, did the food you bought not last and you didn't have the money to get more?: Never true Within the past 12 months, did you worry whether your food would run out before you got money to buy more?: Never true Do you have trouble paying for medicines?: No Do you have trouble getting transportation to medical appointments?: No Do you have trouble paying your heating and electricity bill?: No Do you have trouble taking care of your child, family member or friend?: No Do you have trouble with day-to-day activities such as bathing, preparing meals, shopping, managing finances, etc.?: No Are you currently unemployed and looking for a job?: No Are you interested in more education?: No Please select the resources that you would like help with: None Currently or been in a relationship where the following occur: No concerns reported THRIVE Score: 0 ROXANA-7 AMB Questionnaire ROXANA-7 Date ROXANA - 7 assessed: 08/14/25 Feeling nervous, anxious, or on edge: 0 = Not at all Not being able to stop or control worryin = Not at all Worrying too much about different things: 0 = Not at all Trouble relaxin = Not at all Being so restless that it is hard to sit still: 0 = Not at all Becoming easily annoyed or irritable: 0 = Not at all Feeling afraid as if something awful might happen: 0 = Not at all Total ROXANA-7 score (0-4 normal; 5-9 mild; 10-14 moderate; 15-21 severe): 0 Source: Developed by Drs. Tk Sánchez, Brisa Smith, Obi Reis and colleagues, with an educational vel from [employer]. ROXANA-7 Assessment Billing ROXANA-7 Assessment Tool: ROXANA-7 Assessment 79184 Physical exam (Primary Care) Vital Signs: Last Vital Signs Temp 97.2 F 08/14/25 14:41 Pulse 53 08/14/25 14:41 Resp 12 08/14/25 14:41 BP 112/67 08/14/25 14:41 Pulse Ox 99 08/14/25 14:41 Oxygen Delivery Method Room Air 08/14/25 14:41 BMI result Body Mass Index 24.1 Tobacco/Smoking Status: Tobacco use Status Tobacco use date assessed 08/14/25 08/14/25 14:43 Patient Tobacco Use Status Never used Tobacco 08/14/25 14:43 e-Cigarette/Vaping Use Never Used 08/14/25 14:43 PHQ-9: PHQ-9 Score PHQ-9: Total score 0 08/14/25 14:43 Depression Screening Interpretation: Negative Thrive Assessment: Date of Thrive Assessment Date Thrive assessed 08/14/25 08/14/25 14:43 Currently or been in a relationship where the following occur: No concerns reported Coding Level of Care Code Est Pt Prev Care 18-39y(14426) Diagnoses Routine physical examination Z00.00 Depression with anxiety F41.8 Decreased white blood cell count D72.819 Low serum alkaline phosphatase R74.8 Additional Codes ROXANA-7 Assessment Billing - ROXANA-7 Assessment Tool: ROXANA-7 Assessment 05205 ([id number]) PHQ-9 - 09129 - PHQ-9 Billing: Yes ([id number]) Assessment & Plan Assessment & Plan (1) Routine physical examination: Code(s): Z00.00 - Encounter for general adult medical examination without abnormal findings Category: Medical Plan: Patient is seen today for a routine physical. As part of this visit we reviewed the following issues, which are considered and essential part of preventative health in this age group: - Annual Hide Buyer exam - Blood pressure screening annually - Cholesterol screening - Osteoporosis prevention including calcium/vitamin D intake, weight bearing exercise & smoking cessation - Nutritional and exercise counseling - Counseling of injury prevention including fire prevention, smoke alarms and seat belt usage - Screening for depression - Education about skin cancer - Recommendations about immunizations - Recommendation of an eye exam - Screening for substance abuse (2) Depression with anxiety: Code(s): F41.8 - Other specified anxiety disorders Category: Medical Plan: Continue sertraline. Her psychiatrist does not provide p.r.n. meds. Wrote limited prescription for lorazepam. She can take a half to a full tablet as needed for anxiety. Reviewed that this causes sedation and drowsiness. She should not drive or operate heavy machinery or drink alcohol with this medication. We reviewed the medication is addictive. (3) Decreased white blood cell count: Code(s): D72.819 - Decreased white blood cell count, unspecified Category: Medical Plan: Recheck in 4 weeks. (4) Low serum alkaline phosphatase: Code(s): R74.8 - Abnormal levels of other serum enzymes Category: Medical Plan: Recheck in 4 weeks. Check vitamin-D, zinc, B6, magnesium. Plan Follow up in 5 weeks for telehealth visit to review labs Medications: New lorazepam 0.5 mg PO DAILY PRN 10 tabs 0RF anxiety Discontinued hydroxyzine HCl Discontinued Reason: Doctor's Order 25 mg PO TID 270 tabs 1RF for itch
[2025-08-14 14:41] VITALS: BP 112/67; PULSE 53; RESP 12; TEMP 36.2; O2SAT 99; BMI 24.1
--- OUTSIDE RECORDS SUMMARY | 2025-08-15 04:46 | XMS_ITS | Data Portability ---
Author Organization [facility], [address] Address [address] [place] [address] Assessment No assessment recorded. Plan of Treatment Reminders Order Date Submit Date Provider Last Modified By Organization Details Last Modified Time Details Appointments None recorded. Lab None recorded. Referral None recorded. Procedures None recorded. Surgeries None recorded. Imaging None recorded. Medication Orders Diflucan 150 mg tablet 2023 024 [facility] #[id number], [address] [place], [address], 17:36:43 Patient TargetsNo targets recorded. Patient Instructions Encounter Date Encounter Id Patient Instructions Last Modified By Organization Details Last Modified Time 04/14/2024 [id number] Based on your history and complaint, you [...] Decreased Immune System 4. Diabetes 5. Sexual [place] 6. As with initial yeast infections, it [...] sexually transmitted disease. Thank you for using [employer], please feel free to contact our office if you have any questions or concerns. [email or web address] Not available 04/14/2024 17:36:40 Reason for Referral [...] 4 160.02 cm 24.6 kg/m2 75 % 04008.3 4 g 98 % 98 % 75 [...] ICD10 Code Diagnosis IMO Codes Diagnosis Note [id number] [address] [place] [address] 06/30/2021 08:51:09 06/30/2021 11:39:23 [id number] [address] [place] [address] 06/15/2020 14:30:09 06/15/2020 14:34:44 [id number] [address] [place] [address] 10/18/2016 10:13:20 10/18/2016 11:32:12 [id number] [address] [place] [address] 03/20/2022 08:54:45 03/20/2022 10:23:24 [id number] [facility]ID MEZA [address] [place] [address] 04/14/2024 16:39:27 04/14/2024 17:38:57 Candidiasis of vagina [id number] B37.31 Health Concerns Section Related Observation LastModified by Organization Detai ls LastModified Time None Recorded Concern Status LastModified by Organization Details LastModified Time None Recorded Advance Directives Directive None Recorded Payers Insurance Date Sequence Insurance Name Policy Number Policy Bassett Covered Member ID Bassett Member ID Guarantor Name 04/14/2024 1 [facility]: [facility] [id number] Raiza Portia [id number] Radha Portia Notes Date Note Type Note Provider Name and Address Organization Details Recorded Time 04/14/2024 text/html 18 y.o healthy female pt presents with vaginal itching and white thick discharge x 2 days. Pt recently had ABX for dental visit. Pt denies fever, dysuria, urgency or pelvic pain. REID MEZA [address] [place], [address], [place] - [facility] 04/14/2024 17:38:22 OBGyn Episode No OBEpisode recorded.
== END 2025-08-14 15:09 | disposition home or self-care (01) ==
LOC: HO.HMCFM 14:31
PROVIDERS: PCP Physician Assistant Medical; Visit Provider Physician Assistant Medical
DX: Z00.00 Encounter for general adult medical examination without abnormal findings (principal); F41.8 Other specified anxiety disorders; D72.819 Decreased white blood cell count, unspecified; R74.8 Abnormal levels of other serum enzymes

== ENCOUNTER → 2025-08-14 14:30 | Outpatient (BNVA) | payer BC, SELFPAY | PROVIDERS: PCP Physician Assistant Medical; Visit Provider Physician Assistant Medical | DX: Z00.00 Encounter for general adult medical examination without abnormal findings (principal); F41.8 Other specified anxiety disorders; D72.819 Decreased white blood cell count, unspecified; R74.8 Abnormal levels of other serum enzymes; Z13.31 Encounter for screening for depression; Z13.39 Encounter for screening examination for other mental health and behavioral disorders | CPT/HCPCS: 96127 ==

== ENCOUNTER 2025-08-23 08:10 | Outpatient (REF) | payer BC, SELFPAY ==
--- OUTSIDE RECORDS SUMMARY | 2025-05-19 06:10 | XMS_ITS ---
Author Organization [employer] [facility] Address [address] [place] [address] Care Team Providers Care Snowboarding Instructor Name Role Phone Merna Mata Unavailable [phone] REASON FOR VISIT ULTRA-CK IUD Encounters Encounter Location Date Provider Diagnosis [facility] [employer] [address] [address] 05/19/2025 Merna Mata Plan Of Treatment Next Appt Details Provider Name:Merna gilmoremitchell, 04/04/2026 08:20:00 AM, [address] [place] [address], [address], [place], [address], Progress Notes * ISA WHITLOCKDOB: (20 yo F)Acc No.[id number]:05/19/2025 PROGRESS NOTES Patient: Marvin ISA FIGUEREDO Appointment Provider: Mitchell Mata M.D. :2005 A ge:19 Y S ex:Female Date:05/19/2025 Address:[address] [place] [address] Subjective: * Chief Complaints: * 1 . ULTRA-CK IUD. * Medical History: Objective: * Vitals: Assessment: Plan: * Treatment: * Images: Billing Information: * Visit Code: * Procedure Codes: * Electronic signature of Winston Mata MD on 08/23/2025 at 08:23 AM EST Sign off status: Pending * Appointment Provider: Mitchell Mata M.D. Date: 0 05/19/2025 Generated for Mavis pisano/Nellie/Alex on: 1 10/23/2024 08:23 AM EST
--- OUTSIDE RECORDS SUMMARY | 2025-08-23 08:23 | XMS_ITS | Clinical Summary ---
Author Organization [facility] Address [address] [place], [place] [id number] Care Team Providers Care Press Hand Supervisor Name Role Phone Estephania Sims MD Primary [...] so, obtain the minor's consent prior to disclosure.[facility]'s Allergies Active Allergy Reactions Criticality Noted Date [...] patient's age to complete this topic Insurance [facility] [place] [id number] [employer] Care Teams Press Hand Supervisor Relationship Specialty Start Date End Date Estephania Sims MD PCP - General 02/05/18
--- OUTSIDE RECORDS SUMMARY | 2025-08-23 08:23 | XMS_ITS | Encounter Summary ---
Author Organization [facility] Address [address] [place] [address] Care Team Providers Care Gas Line Installer Name Role Phone Estephania Sims MD Primary Care Provider [phone] Reason for Visit * Reason Comments Medication Refill Encounter Details Date Type Department Care Team (Late st Contact Info) Description 07/16/2021 Refill [facility] Gastroenterology, [address] [address] Aubrie Rodriguez MD [address] [place] [id number] Lower abdominal pain Social History Tobacco Use [...] site documented in this encounter Care Teams Gas Line Installer Relationship Specialty Start Date End Date Estephania Sims MD PCP - General 02/05/18 documented as of this encounter
--- OUTSIDE RECORDS SUMMARY | 2025-08-23 08:23 | XMS_ITS | Patient Health Record ---
Author Organization [facility] Address [address] [place] [address] Care Team Providers Care Nurse Auditor Name Role Phone Merna Mata Unavailable [phone] Allergies No Known Allergies Results Component Value Reference Range Notes Urinalysis Reviewed date:03/28/2025 12:10:38 PM Interpretation: Performing Lab: Notes/Report: PH 5.0 PROTEIN NEG GLUCOSE NEG BLOOD NEG [id number] IGP, CtNg, Cultur e Under 30 Reviewed date:03/30/2025 04:43:23 PM Interpretation: Performing Lab:[facility] [place], [address], [address], [place], Phone - [phone], Director - [facility] Notes/Report: Clinical Information:VAG/CERV [id number] LMP / Prev Treat...[id number]=[id number] Dates / Results....NONE No. of containers..01 ThinPrep Vial DIAGNOSIS: NEGATIVE FOR IN TRAEPITHELIAL LESION OR MALIGNANCY. Specimen adequacy: Satisfactory for evaluation. Endocervical and/or squamous metaplastic cells (endocervical component) are present. Clinician provided ICD10: Z01.419 Z72.51 Z11.3 Performed by: Shin hale, Loading Manager (ASCP) . . Note: The Pap smear [...] Reviewed date:03/30/2025 04:42:20 PM Interpretation: Performing Lab:[facility] [place], [address], [address], [place], Phone - [phone], Director - [facility] Notes/Report: Clinical Information:VAG/CERV [id number] LMP / Prev Treat...[id number] Dates / Results....NONE No. 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 Vital Signs Temperature 98.1 degrees Fahrenheit 05/19/2025 Blood pressure diastolic 70 mm Hg 05/19/2025 Height 63 in 05/19/2025 Blood pressure systolic 108 mm Hg 05/19/2025 Weight 129 lbs 05/19/2025 BMI 22.85 kg/m2 05/19/2025 Encounters Encounter Location Date Provider Diagnosis [address] [place] [address] 05/19/2025 Merna Mata Total [facility] [address] [address] 03/28/2025 Merna Mata Encounter for gynecological examination (general) (routine) without abnormal findings Z01.419 ; High risk heterosexual behavior Z72.51 ; Encounter for screening for infections with a predominantly sexual mode of transmission Z11.3 ; Encounter for routine checking of intrauterine contraceptive device Z30.431 and Other specified counseling Z71.[address] [address] 04/18/2025 Merna Mata Encounter for remova l and reinsertion of intrauterine contraceptive device Z30.[address] [address] 05/19/2025 Merna Mata Encounter for routin e checking of intrauterine contraceptive device Z30.[address] [address] 03/28/2025 Merna Mata Assessments Encounter Date Diagnosis [...] Galloway alyssa, 04/04/2026 08:20:00 AM, [address] [facility], [address], [place], [address], Insurance Providers Payer Name Payer Address Payer Phone Subscriber Number Group Number Insured Name Patient Relationship to Insured Coverage Start Date Coverage End Date [employer] [place] [address] [place] [address] [phone] [id number] ISA WHITLOCK Self - patient is the insured Medical (General) History Medical History History ICD Code Acquired absence of other organs Z90.89 Surgical History Surgery Date(Month/Year) APPENDECTOMUY 2015 Hospitalization History Reason Date(Month/Year) CAR ACCEDENT 02/08/2024
[2025-08-23 08:42] LABS: MANUAL DIFF FLAG NO
[2025-08-23 09:27] LABS: Hematocrit 40.8 % (37.0-47.0); Hemoglobin 13.8 g/dl (12.0-16.0); Imm Gran Abs Auto 0.00 X10*3/uL (0.00-0.03); Imm Gran Pct Auto 0.0 % (0.0-0.4); Lymphocytes Absolute Auto 1.2 X10*3/uL (1.2-4.9); Mean Corpuscular HGB Conc 33.8 g/dl (31.0-35.0); Mean Corpuscular Hemoglobin 30.7 pg (27.0-33.0); Mean Corpuscular Volume 90.7 fL (80.0-98.0); NRBC Abs Auto 0.000 X10*3/uL (0.0-0.012); NRBC Pct Auto 0.0 /100WBC (0.0-0.2); Platelet Count 179 X10*3/uL (160-400); Red Blood Count 4.50 X10*6/uL (4.20-5.50); White Blood Count 3.4 X10*3/uL (4.8-10.8)
[2025-08-23 09:41] LABS: Alkaline Phosphatase 31 U/L (39-117); Magnesium 1.9 mg/dL (1.6-2.6)
[2025-08-25 12:47] LABS: Immunoglobulin A 146 mg/dL (47-310)
[2025-08-25 22:33] LABS: Transglutaminase Ab IgG <1.0 U/mL
[2025-08-29 14:18] LABS: Vitamin D 25-OH, D2 <4 ng/mL; Vitamin D 25-OH, D3 23 ng/mL; Vitamin D 25-OH, Total 23 ng/mL (30-100)
== END 2025-08-23 08:11 | disposition home or self-care (01) ==
LOC: HO.WFDLDS 08:10
PROVIDERS: Visit Provider Physician Assistant Medical
DX: Z13.21 Encounter for screening for nutritional disorder (principal); R74.8 Abnormal levels of other serum enzymes; D72.819 Decreased white blood cell count, unspecified; T78.19XA Other adverse food reactions, not elsewhere classified, initial encounter
CPT/HCPCS: 36415; 82306; 82784; 83735; 84075; 84630; 85025; 86231; 86364